=== PATIENT | male | born 1965 | race Caucasian/White ===

== ENCOUNTER 2017-01-23 17:40 | Emergency (ER) | payer OTHER, MEDICAID ==
[~2017-01-23] VITALS: Ht 180.3 cm; Wt 50.0 kg
[~2017-01-23 17:40] MED LIST: BACT800T5 PO
--- NOTE | 2017-01-23 18:09 | PD ---
HPI Chief Complaint: Psychiatric Symptoms Time Seen by Provider: 18:07 Travel History International Travel<30 days: No Contact w/Intl Traveler<30days: No Traveled to known affect area: No History of Present Illness HPI 51-year-old male with history of brain injury and schizophrenia who presents under police protection under the Fields act. The Fields act states the patient was reportedly getting upset and throwing things at the house with his mother called the police. He threatened to throw lateral appliances into the swimming pool. It is reported that the patient was be taking something for seizures and is schizophrenia but has not taken his meds for several weeks. Patient is uncooperative and is brought in under restraints. He is uncooperative with history and physical. I am unsure of the medications he is supposed to be taking at this time. He has no known drug allergies. PFSH Past Medical History Medical History: Unable to Obtain Arthritis: No Asthma: No Autoimmune Disease: No Heart Rhythm Problems: No Cancer: No Cardiovascular Problems: No Chemotherapy: No Chest Pain: No Congestive Heart Failure: No COPD: No Cerebrovascular Accident: No Diabetes: No Diminished Hearing: No Endocrine: No Genitourinary: No Hiatal Hernia: No Immune Disorder: No Kidney Stones: No Musculoskeletal: Yes Neurologic: Yes (HX OF TBI 1991 [employer]) Reproductive: No Respiratory: No Migraines: No Radiation Therapy: No Renal Failure: No Seizures: Yes Sickle Cell Disease: No Sleep Apnea: No Thyroid Disease: No Ulcer: No Past Surgical History Abdominal Surgery: No Cardiac Surgery: No Ear Surgery: No Endocrine Surgery: No Eye Surgery: No Genitourinary Surgery: No Gynecologic Surgery: No Insulin Pump: No Oral Surgery: No Pacemaker: No Thoracic Surgery: No Other Surgery: Yes Social History Alcohol Use: Yes (DAILY) Tobacco Use: Yes (1 PPD) Substance Use: Yes (WEED) Allergies-Medications (Allergen,Severity, Reaction): Coded Allergies: No Known Allergies (Unverified , 01/23/17) Reported Meds & Prescriptions Reported Meds & Active Scripts Active Active Prescriptions or Reported Medications Unobtainable Review of Systems ROS Limitations: Uncooperative, Refused, Combative Except as stated in HPI: all other systems reviewed are Neg General / Constitutional: No: Fever Eyes: No: Visual changes HENT: No: Headaches Cardiovascular: No: Chest Pain or Discomfort Respiratory: No: Shortness of Breath Gastrointestinal: No: Abdominal Pain Genitourinary: No: Dysuria Musculoskeletal: No: Pain Skin: No Rash Neurologic: No: Weakness Psychiatric: No: Depression Endocrine: No: Polydipsia Hematologic/Lymphatic: No: Easy Bruising Physical Exam Exam Limitations: Uncooperative, Refused, Combative Narrative GENERAL: Patient is in restraints and uncooperative. He has no obvious medical East. SKIN: Warm and dry. Normal color. Normal turgor. No signs of trauma. HEAD: Atraumatic. Normocephalic. EYES: Pupils equal and round. No scleral icterus. No injection or drainage. ENT: No nasal bleeding or discharge. Mucous membranes pink and moist. NECK: Trachea midline. CARDIOVASCULAR: Regular rate and rhythm. RESPIRATORY: No accessory muscle use. MUSCULOSKELETAL: Extremities without clubbing, cyanosis, or edema. No obvious deformities. NEUROLOGICAL: Awake and alert. No obvious cranial nerve deficits. Motor grossly within normal limits. Five out of 5 muscle strength in the arms and legs. Normal speech. PSYCHIATRIC: Patient is inappropriate in his responses. Unable to determine his psychiatric status at this time. Data Data Last Documented VS Vital Signs Date Time Temp Pulse Resp B/P Pulse Ox O2 Delivery O2 Flow Rate FiO2 01/23/17 18:14 98.1 132 24 164/106 96 Room Air Orders Complete Blood Count With Diff (01/23/17 18:10) Comprehensive Metabolic Panel (01/23/17 18:10) Iv Access Insert/Monitor (01/23/17 18:10) Psych Screen (01/23/17 18:10) Lorazepam Inj (Ativan Inj) (01/23/17 18:15) Drug Screen, Random Urine (01/23/17 18:10) Alcohol (Ethanol) (01/23/17 18:10) Diphenhydramine Inj (Benadryl Inj) (01/23/17 18:15) Restraints Violent (01/23/17 18:17) Labs Laboratory Tests Test 01/23/17 18:20 White Blood Count 10.6 TH/MM3 Red Blood Count 5.55 MIL/MM3 Hemoglobin 17.4 GM/DL Hematocrit 53.5 % Mean Corpuscular Volume 96.5 FL Mean Corpuscular Hemoglobin 31.3 PG Mean Corpuscular Hemoglobin 32.5 % Concent Red Cell Distribution Width 13.8 % Platelet Count 316 TH/MM3 Mean Platelet Volume 9.4 FL Neutrophils (%) (Auto) 70.0 % Lymphocytes (%) (Auto) 22.6 % Monocytes (%) (Auto) 6.5 % Eosinophils (%) (Auto) 0.1 % Basophils (%) (Auto) 0.8 % Neutrophils # (Auto) 7.5 TH/MM3 Lymphocytes # (Auto) 2.4 TH/MM3 Monocytes # (Auto) 0.7 TH/MM3 Eosinophils # (Auto) 0.0 TH/MM3 Basophils # (Auto) 0.1 TH/MM3 CBC Comment DIFF FINAL Differential Comment MDM Medical Decision Making Medical Screen Exam Complete: Yes Emergency Medical Condition: Yes Medical Record Reviewed: Yes Differential Diagnosis Fields act. Psychotic Symptoms. Danger to self and others. Narrative Course The patient appears medically stable. Labs ordered including CBC, CMP, urinalysis, serum EtOH level, urine drug screen. Patient is given 2 mg lorazepam IV, and 50 mg Benadryl IV. Patient is kept in restraints at this time. 1900 hrs. Labs are pending. Patient has a sitter. Care of patient is transferred to Dr. Dill who will medically clear him for psychiatric eval. Psych eval is ordered. Diagnosis Primary Impression: Severe depressed bipolar II disorder without psychotic features Additional Impressions: Seizures Medical clearance for psychiatric admission Scripts Unable to Obtain Active Prescriptions or Reported Meds Condition: Stable Isaak Amaro Jan 23, 2017 18:09
[2017-01-23 18:14] VITALS: BP 164/106; PULSE 132; RESP 24; TEMP 98.1; O2SAT 96
[2017-01-23] MEDS ORDERED: diphenhydrAMINE HCL 50 MG/ML VIAL IV PUSH ONE (18:15)
[2017-01-23] MEDS ORDERED: LORazepam 2 MG/ML VIAL IV ONE (18:15)
[2017-01-23 18:44] LABS: AUTOMATED NEUTROPHIL # 7.5 TH/MM3 (1.8-7.7); BASOPHIL # 0.1 TH/MM3 (0-0.2); BASOPHIL % 0.8 % (0.0-2.0); EOSINOPHIL % 0.1 % (0.0-4.0); HEMATOCRIT 53.5 % (39.0-51.0); HEMO FLAGS DIFF FINAL; LYMPH % 22.6 % (9.0-44.0); LYMPHOCYTE # 2.4 TH/MM3 (1.0-4.8); MEAN CELL VOLUME 96.5 FL (80.0-100.0); MEAN CORPUSCULAR HEMOGLOBIN 31.3 PG (27.0-34.0); MEAN CORPUSCULAR HGB CONC 32.5 % (32.0-36.0); MONO % 6.5 % (0.0-8.0); PLATELET COUNT 316 TH/MM3 (150-450); RED BLOOD COUNT 5.55 MIL/MM3 (4.50-5.90); RED CELL DISTRIBUTION WIDTH 13.8 % (11.6-17.2); WHITE BLOOD COUNT 10.6 TH/MM3 (4.0-11.0)
[2017-01-23 19:12] LABS: ANION GAP 18 MEQ/L (5-15); AST (GOT) 31 U/L (15-37); BICARBONATE 14.7 MEQ/L (21.0-32.0); BLOOD UREA NITROGEN 12 MG/DL (7-18); CHLORIDE 113 MEQ/L (98-107); GLOMERULAR FILTRATION RATE 58 ML/MIN (>89); POTASSIUM 3.4 MEQ/L (3.5-5.1); SODIUM (NA) 146 MEQ/L (136-145)
[2017-01-23 19:14] LABS: ALT (GPT) 23 U/L (12-78)
[2017-01-23 19:16] LABS: ALKALINE PHOSPHATASE 117 U/L (45-117); TOTAL BILIRUBIN ADULT 0.4 MG/DL (0.2-1.0)
--- NOTE | 2017-01-23 20:04 | PD ---
Data Data Last Documented VS Vital Signs Date Time Temp Pulse Resp B/P Pulse Ox O2 Delivery O2 Flow Rate FiO2 01/23/17 22:31 16 01/23/17 18:14 98.1 132 164/106 96 Room Air Orders Complete Blood Count With Diff (01/23/17 18:10) Comprehensive Metabolic Panel (01/23/17 18:10) Iv Access Insert/Monitor (01/23/17 18:10) Psych Screen (01/23/17 18:10) Lorazepam Inj (Ativan Inj) (01/23/17 18:15) Drug Screen, Random Urine (01/23/17 18:10) Alcohol (Ethanol) (01/23/17 18:10) Diphenhydramine Inj (Benadryl Inj) (01/23/17 18:15) Restraints Violent (01/23/17 18:17) Haloperidol Inj (Haldol Inj) (01/23/17 20:15) Diphenhydramine Inj (Benadryl Inj) (01/23/17 20:15) Sodium Chlor 0.9% 1000 Ml Inj (Ns 1000 M (01/23/17 21:00) Thiamine Inj (Thiamine Inj) (01/23/17 21:00) Lorazepam Inj (Ativan Inj) (01/23/17 22:00) Morphine Inj (Morphine Inj) (01/23/17 22:30) Labs Laboratory Tests Test 01/23/17 01/23/17 18:20 20:10 White Blood Count 10.6 TH/MM3 Red Blood Count 5.55 MIL/MM3 Hemoglobin 17.4 GM/DL Hematocrit 53.5 % Mean Corpuscular Volume 96.5 FL Mean Corpuscular Hemoglobin 31.3 PG Mean Corpuscular Hemoglobin 32.5 % Concent Red Cell Distribution Width 13.8 % Platelet Count 316 TH/MM3 Mean Platelet Volume 9.4 FL Neutrophils (%) (Auto) 70.0 % Lymphocytes (%) (Auto) 22.6 % Monocytes (%) (Auto) 6.5 % Eosinophils (%) (Auto) 0.1 % Basophils (%) (Auto) 0.8 % Neutrophils # (Auto) 7.5 TH/MM3 Lymphocytes # (Auto) 2.4 TH/MM3 Monocytes # (Auto) 0.7 TH/MM3 Eosinophils # (Auto) 0.0 TH/MM3 Basophils # (Auto) 0.1 TH/MM3 CBC Comment DIFF FINAL Differential Comment Sodium Level 146 MEQ/L Potassium Level 3.4 MEQ/L Chloride Level 113 MEQ/L Carbon Dioxide Level 14.7 MEQ/L Anion Gap 18 MEQ/L Blood Urea Nitrogen 12 MG/DL Creatinine 1.29 MG/DL Estimat Glomerular Filtration 58 ML/MIN Rate Random Glucose 82 MG/DL Calcium Level 9.2 MG/DL Total Bilirubin 0.4 MG/DL Aspartate Amino Transf 31 U/L (AST/SGOT) Alanine Aminotransferase 23 U/L (ALT/SGPT) Alkaline Phosphatase 117 U/L Total Protein 7.7 GM/DL Albumin 4.4 GM/DL Ethyl Alcohol Level 276 MG/DL Urine Opiates Screen NEG Urine Barbiturates Screen NEG Urine Amphetamines Screen NEG Urine Benzodiazepines Screen NEG Urine Cocaine Screen NEG Urine Cannabinoids Screen POS MDM Supervised Visit with MARIELLE: Yes Narrative Course Patient care assumed from Osmany Amaro at 1900. This is a 51-year-old male presents intoxicated on Fields act. Initial evaluation the patient shows the patient to has dry mucous membranes but no obvious signs of trauma, he has no complaints other than low back pain which he states been going on for years for him. Additional sedation medication as well as pain medicine was ordered for him, he is waxing and waning periods of yellowing. Difficult to understand secondary to edentulism. The patient has blood work does have a mild metabolic acidosis, I think is partially secondary to dehydration. He was given a liter of normal saline as well as thiamine. After the fluids he is calm and more cooperative but certainly is intoxicated. He is medically stable for psychiatric evaluation and disposition. Diagnosis Primary Impression: Severe depressed bipolar II disorder without psychotic features Additional Impressions: Medical clearance for psychiatric admission Seizures Scripts Unable to Obtain Active Prescriptions or Reported Meds Condition: Stable Ryne Dill MD Jan 23, 2017 20:04
[2017-01-23] MEDS ORDERED: diphenhydrAMINE HCL 50 MG/ML VIAL IM ONE (20:15)
[2017-01-23] MEDS ORDERED: HALOPERIDOL LACTATE 5 MG/ML AMP IM ONE (20:15)
[2017-01-23 20:59] LABS: AMPHETAMINE, URINE NEG (NEG); BARBITURATES, URINE NEG (NEG); COCAINE, URINE NEG (NEG)
[2017-01-23] MEDS ORDERED: THIAMINE INJ 100 MG in SODIUM CHLORIDE 0.9% INJ 100 ML IV ONE (21:00)
[2017-01-23] MEDS ORDERED: SODIUM CHLOR 0.9% 1000 ML INJ 1,000 ML IV ONE (21:00)
[2017-01-23 22:00] VITALS: BP 159/98; PULSE 108; RESP 20; O2SAT 97
[2017-01-23] MEDS ORDERED: LORazepam 2 MG/ML VIAL IV PUSH ONE (22:00)
[2017-01-23] MEDS ORDERED: MORPHINE SULFATE 8 MG/ML INJ IV PUSH ONE (22:30)
[2017-01-24 03:01] VITALS: BP 154/91; PULSE 95; RESP 18; O2SAT 95
== END 2017-01-24 12:36 | disposition home or self-care (01) ==
LOC: NEPD 17:40
DX: F31.81 Bipolar II disorder (principal); R56.9 Unspecified convulsions; F10.129 Alcohol abuse with intoxication, unspecified; E87.2 Acidosis; F17.210 Nicotine dependence, cigarettes, uncomplicated; Z87.820 Personal history of traumatic brain injury
CPT/HCPCS: 80053; 80307; 85025; 96372; 96374; 96375; 99285; J1200; J1630; J2060; J2270; J3411; J7030